=== PATIENT | female | born 1955 | race Two or more races ===

== ENCOUNTER 2023-01-27 14:58 | Emergency (ER) | payer OTHER ==
[~2023-01-27] VITALS: Ht 172.7 cm; Wt 99.8 kg
[2023-01-27 19:23] LABS: HEMATOCRIT 35.1 % (36.0-45.00); HEMOGLOBIN 11.5 g/dL (12.0-15.00); MEAN CELL VOLUME 77.3 fL (80.00-100.00); MEAN CORPUSCULAR HEMOGLOBIN 25.4 pg (27.00-32.0); MEAN CORPUSCULAR HGB CONC 32.8 g/dl (32.0-36.0); PLATELET COUNT 314 K/uL (150-450); RED BLOOD COUNT 4.54 M/uL (4.00-6.00); RED CELL DISTRIBUTION WIDTH 16.7 % (11.5-14.5)
[2023-01-27 19:26] LABS: PH,URINE 6.5 (5.0-8.0); URINE APPEARANCE Cloudy; URINE BILIRRUBIN Negative (NEGATIVE); URINE BLOOD NHT; URINE COLOR Yellow; URINE GLUCOSE Negative (NEGATIVE); URINE LEUKOCYTE Small; URINE NITRATE Positive; URINE PROTEIN 30 (NEGATIVE)
[2023-01-27 19:30] LABS: URINE WBC 238.8 uL (0.0-23.2)
[2023-01-27 19:43] LABS: CALCIUM 8.8 mg/dL (8.5-10.1); CREATININE SERUM 1.1 mg/dL (0.55-1.02); GFR 49.85; POTASSIUM 3.02 mEq/L (3.5-5.1)
[2023-01-27 19:49] LABS: INR 1.05; PARTIAL THROMBOPLASTIN TIME 28.8 SECONDS (22.0-34.0)
[2023-01-27 20:28] LABS: URINE BACTERIA > 9821.2 uL (0.0-1933)
[2023-01-27 20:29] LABS: URINE CRYSTALS NEGATIVE /HPF; URINE YEAST NEGATIVE /hpf
[2023-01-27] MEDS ORDERED: MICRO-K 1010 MEQ PO (20:37)
[2023-01-27] MEDS ORDERED: DUI500 PO (20:37)
== END 2023-01-27 21:05 | disposition home or self-care (01) ==
LOC: ER 14:58
PROVIDERS: General Practice
DX: N39.0 Urinary tract infection, site not specified (principal); R53.1 Weakness; I10 Essential (primary) hypertension
CPT/HCPCS: 36415; 93005; 96365; 99283; J3490

== ENCOUNTER → 2024-09-25 07:04 | Outpatient (CLI) | payer OTHER ==
[~2024-09-25 07:04] MED LIST: DUI500 PO; MICRO-K 1010 MEQ PO
== END | disposition home or self-care (01) ==
LOC: NUCLEAR 07:00
PROVIDERS: ATTEND Internal Medicine Gastroenterology
DX: R10.9 Unspecified abdominal pain (principal)
CPT/HCPCS: 78227; A9537